=== PATIENT | male | born 1975 | race Hispanic/Latino ===

== ENCOUNTER → 2019-02-20 | Outpatient (CLI) | payer BC, MEDICARE | END | disposition home or self-care (01) | LOC: LAB 12:45 | PROVIDERS: ATTEND Internal Medicine Gastroenterology | DX: R19.7 Diarrhea, unspecified (principal); R14.0 Abdominal distension (gaseous); R10.84 Generalized abdominal pain; R15.1 Fecal smearing | CPT/HCPCS: 87507 ==

== ENCOUNTER 2019-02-26 20:53 | Inpatient (IN) | payer BC, MEDICARE ==
[~2019-02-26] VITALS: Ht 172.7 cm; Wt 87.1 kg
[2019-02-26 22:11] LABS: EOSINOPHILS % (AUTO) 4.9 % (0.0-8.0); HEMATOCRIT 40.3 % (42-54); LYMPHOCYTES % (AUTO) 15.7 % (21.0-51.0); MEAN CORPUSCULAR HEMOGLOBIN 31.7 pg (27.0-33.0); MEAN CORPUSCULAR HGB CONC 32.9 g/dL (32.0-36.0); MEAN CORPUSCULAR VOLUME 96.2 fL (79-99); MONOCYTES % (AUTO) 8.5 % (3.0-13.0); NEUTROPHILS % (AUTO) 69.9 % (40.0-77.0); NUCLEATED RED BLOOD CELLS 0.2 % (0.0-0.19); PLATELET COUNT (AUTO) 225 K/uL (130-400); RED BLOOD CELL COUNT(AUTO) 4.19 MIL/uL (4.50-6.20); WHITE BLOOD COUNT (AUTO) 14.4 K/uL (4.8-10.8)
[2019-02-26 22:43] LABS: ALBUMIN 3.1 g/dL (3.5-5.0); BILIRUBIN,TOTAL 0.4 mg/dL (0.2-1.0); POTASSIUM 5.1 mmol/L (3.5-5.1); TOTAL PROTEIN, SERUM 7.5 g/dL (6.0-8.3)
[2019-02-26] MEDS: METRONIDAZOLE 500MG/100ML BAG 100 ML IV SCH (23:45)
[2019-02-26] MEDS ORDERED: ONDANSETRON HCL 4 MG/2 ML VIAL IV PRN (23:45)
[2019-02-26] MEDS ORDERED: ACETAMINOPHEN 325 MG TAB PO PRN (23:45)
[2019-02-27] VITALS (7 sets, daily range): BP systolic 112–150; BP diastolic 61–79
[2019-02-27] MEDS ORDERED: METRONIDAZOLE 500MG/100ML BAG 100 ML ONE (01:19)
--- NOTE | 2019-02-27 02:00 | NUR ---
ADMISSION N0TE: Admitted to floor per stretcher from ER. AOX3. Fully awake , responsive and ambulatory. Placed in bed according to his comfort. Assesment done. VS checked and recorded. ( see CPOE flow sheet for full assessment). Oriented to room and use of call light. Policies and procedures explained. Verbalized understanding. Home meds entered and reconciled by on-call hospitalist. Plan of care initiated. Observed for any unusual changes in condition. Cared for and needs attended. No apparent distress noted.
[2019-02-27] MEDS: MEPERIDINE HCL/PF 25 MG/0.5 ML AMPUL IVP PRN ×2 (03:27→09:36)
[2019-02-27] MEDS ORDERED: ESCI10TA54 PO (04:20)
[2019-02-27] MEDS ORDERED: METR-172 PO (04:20)
[2019-02-27] MEDS ORDERED: FOLI1TAB85 PO (04:21)
[2019-02-27] MEDS ORDERED: AMYL1CAP63 PO (04:21)
[2019-02-27] MEDS ORDERED: FISH1CAP27 PO (04:21)
[2019-02-27] MEDS ORDERED: TRAM50TA4 PO (04:21)
[2019-02-27] MEDS ORDERED: METO50TA18 PO (04:21)
[2019-02-27] MEDS ORDERED: ZOLP10TA6 PO (04:21)
[2019-02-27] MEDS ORDERED: INSU100I29 SQ (04:21)
[2019-02-27] MEDS ORDERED: PANT40TA25 PO (04:21)
[2019-02-27] MEDS ORDERED: GABA600T10 PO (04:21)
[2019-02-27] MEDS ORDERED: INSU3INS3 SQ (04:21)
[2019-02-27] MEDS ORDERED: AMLO10TA7 PO (04:21)
[2019-02-27] MEDS ORDERED: LOSA100T58 PO (04:21)
[2019-02-27] MEDS ORDERED: HYDR-3420 PO (04:21)
[2019-02-27] MEDS ORDERED: SUCR500T PO (04:21)
[2019-02-27 05:27] LABS: BASOPHILS % (AUTO) 1.3 % (0.0-5.0); EOSINOPHILS % (AUTO) 5.5 % (0.0-8.0); HEMATOCRIT 39.5 % (42-54); LYMPHOCYTES % (AUTO) 13.1 % (21.0-51.0); MEAN CORPUSCULAR HEMOGLOBIN 31.4 pg (27.0-33.0); MEAN CORPUSCULAR HGB CONC 32.3 g/dL (32.0-36.0); MEAN CORPUSCULAR VOLUME 97.2 fL (79-99); MONOCYTES % (AUTO) 6.7 % (3.0-13.0); NEUTROPHILS % (AUTO) 73.4 % (40.0-77.0); PLATELET COUNT (AUTO) 211 K/uL (130-400); RED BLOOD CELL COUNT(AUTO) 4.06 MIL/uL (4.50-6.20); RED CELL DISTRIBUTION WIDTH 17.8 % (11.0-15.5); WHITE BLOOD COUNT (AUTO) 15.4 K/uL (4.8-10.8)
[2019-02-27 05:42] LABS: POTASSIUM 4.9 mmol/L (3.5-5.1)
[2019-02-27 06:04] LABS: CREATININE 17.8 mg/dL (0.5-1.5)
[2019-02-27] MEDS: INSULIN HUMULIN R 100 UNIT/ML 3ML SQ SCH ×4 (06:48→21:35)
[2019-02-27] MEDS: LIPASE/PROTEASE/AMYLASE 5000/17000/24000 PO SCH ×3 (07:30→17:51)
[2019-02-27] MEDS: VELPHORO 500 MG PO SCH ×3 (07:30→17:00)
[2019-02-27] MEDS: METOPROLOL TARTRATE 50 MG TAB PO SCH ×2 (09:30→21:39)
[2019-02-27] MEDS: HYDRALAZINE HCL 10 MG TABLET PO SCH ×3 (09:31→21:40)
[2019-02-27] MEDS: FISH OIL 1000 MG/CAP PO SCH ×2 (09:31→21:39)
[2019-02-27] MEDS: CITALOPRAM 20 MG TABLET PO SCH (09:32)
[2019-02-27] MEDS: LOSARTAN 100 MG TABLET PO SCH (09:32)
[2019-02-27] MEDS: AMLODIPINE BESYLATE 5 MG TAB PO SCH (09:32)
[2019-02-27] MEDS: FAMOTIDINE/PF 20 MG/2 ML VIAL IV SCH ×2 (09:32→21:38)
[2019-02-27] MEDS: FOLIC ACID/VITAMIN B COMP W-C 1 MG CAP/TAB PO SCH (09:32)
[2019-02-27] MEDS: METRONIDAZOLE 500MG/100ML BAG 100 ML IV SCH ×3 (09:33→23:29)
--- NOTE | 2019-02-27 11:12 | NUR ---
JEREMY Youssef met with pt who lives with Frannie in [place], works at [employer], is independent of all ADLS, no DME or HH. speaks limited Eng, so mother Lara Chapin is ER contact [phone]. Plan is home at ok Addendum: 02/27/19 at 1114 by EDMUND TIERNEY Amended: Links added.
--- NOTE | 2019-02-27 11:31 | NUR ---
RD Notification Primary Diagnosis: Chronic Diarrhea. Pt currently on clear liquid diet with PO intake at 0%. Pt has a past medical history of chronic diarrhea, chronic pancreatitis, ESRD on hemodialysis, DM, HTN. Skin is intact. LBM: 02/27, diarrhea unresolved. BMI is 31.1; classified as obese. Meds: Humulin R, Zofran, Pepcid, Apresoline, Lopressor. Labs: WBC 15.4, CRE 17.8, HGB 12.8, HCT 39.5, CRE Kinase 1842, Alb 3.1, Amylase 21, Lipase 28, Na 131, TSH 6.4, Positive for Occult Blood. Pt came in with having diarrhea for 2.5 months. He was prescribed antibiotics and took them for 10 days to resolve diarrhea as per pt, however diarrhea has not resolved. As of now, currently pending GI consult. RD Recommended to continue current diet and advance as tolerated when medically feasible. Nurse gave the okay to send him Gatorade and a protein supplement (Promod 30mL TID). In addition, RD recommends giving the pt Pro and Prebiotics. RD will continue to monitor. Please notify RD if any nutritional concerns arise, thank you. Addendum: 02/27/19 at [address] Amended: Links added.
--- NOTE | 2019-02-27 13:59 | NUR ---
PT DIALYZING AT THIS TIME, NURSING WILL CONTINUE TO MONITOR.
[2019-02-27] MEDS ORDERED: ACETAMINOPHEN EXTENDED RELEASE 650 MG TABLET PO PRN (15:30)
[2019-02-27] MEDS: GABAPENTIN 300 MG CAPSULE PO SCH (21:47)
[2019-02-27] MEDS: ZOLPIDEM TARTRATE 5 MG TAB PO SCH (21:47)
[2019-02-27 23:56] LABS: APPEARANCE,URINE Turbid (CLEAR); BILIRUBIN,URINE Negative (NEGATIVE); COLOR,URINE Dark Yellow (YELLOW); GLUCOSE, URINE (UA) 250 mg/dL (NEGATIVE); KETONES,URINE Trace mg/dL (NEGATIVE); LEUKOCYTE ESTERASE ,URINE Large (NEGATIVE); NITRATE,URINE Negative (NEGATIVE); OCCULT BLOOD,URINE Large (NEGATIVE); PROTEIN,URINE >=1000 mg/dL (NEGATIVE)
[2019-02-28 00:05] LABS: BACTERIA,URINE Rare /HPF (None Seen); WBC,URINE 26-50 /HPF (0-1)
[2019-02-28 00:06] LABS: COARSE GRANULAR CASTS,URINE 0-2 /LPF (None Seen); MUCUS,URINE Rare LPF (None Seen); SQUAMOUS EPITHELIAL CELL,UR Moderate /HPF (0-2)
[2019-02-28 03:15] VITALS: BP 157/78
[2019-02-28 04:58] LABS: HEMATOCRIT 38.6 % (42-54); MEAN CORPUSCULAR HGB CONC 33.2 g/dL (32.0-36.0); MEAN CORPUSCULAR VOLUME 93.3 fL (79-99); NUCLEATED RED BLOOD CELLS 0.1 % (0.0-0.19); PLATELET COUNT (AUTO) 191 K/uL (130-400); RED BLOOD CELL COUNT(AUTO) 4.14 MIL/uL (4.50-6.20); RED CELL DISTRIBUTION WIDTH 16.9 % (11.0-15.5); WHITE BLOOD COUNT (AUTO) 11.7 K/uL (4.8-10.8)
[2019-02-28 05:06] LABS: MAGNESIUM 2.2 mg/dL (1.80-2.40); PHOSPHORUS 7.8 mg/dL (2.5-4.9)
[2019-02-28 05:08] LABS: CREATININE 12.4 mg/dL (0.5-1.5); POTASSIUM 2.9 mmol/L (3.5-5.1)
[2019-02-28 05:12] LABS: BAND NEUTROPHILS % (MANUAL) 6 % (0-2); EOSINOPHILS % (MANUAL) 8 % (1-6); LYMPHOCYTES % (MANUAL) 16 % (22-44); MONOCYTES % (MANUAL) 9 % (2-9); REACTIVE LYMPHOCYTES 2 % (0-0); SEGMENTED NEUTROPHILS % 59 % (40-70)
[2019-02-28 05:13] LABS: MAN.DIFF COMMENT-IMPRESSION MANUAL DIFFERENTIAL
[2019-02-28] MEDS ORDERED: LIDOCAINE HCL-MPF 1% 2ML VIAL IVP PRN (05:15)
[2019-02-28] MEDS ORDERED: POTASSIUM CHLORIDE 10MEQ/100ML 100 ML IV PRN ×2 (05:15→08:45)
[2019-02-28] MEDS: INSULIN HUMULIN R 100 UNIT/ML 3ML SQ SCH ×4 (07:30→20:49)
[2019-02-28] MEDS: LIPASE/PROTEASE/AMYLASE 5000/17000/24000 PO SCH ×3 (07:30→17:01)
[2019-02-28] MEDS: VELPHORO 500 MG PO SCH ×3 (07:30→16:11)
[2019-02-28 08:00] VITALS: BP 139/79
[2019-02-28] MEDS: METRONIDAZOLE 500MG/100ML BAG 100 ML IV SCH ×3 (08:21→23:28)
[2019-02-28] MEDS: FAMOTIDINE/PF 20 MG/2 ML VIAL IV SCH (08:23)
[2019-02-28] MEDS ORDERED: POTASSIUM CHLORIDE 10% ELIXIR 20 MEQ/15 ML UDCUP PO PRN (08:45)
[2019-02-28] MEDS: HYDRALAZINE HCL 10 MG TABLET PO SCH ×3 (08:57→22:56)
[2019-02-28] MEDS: CITALOPRAM 20 MG TABLET PO SCH (08:57)
[2019-02-28] MEDS: FOLIC ACID/VITAMIN B COMP W-C 1 MG CAP/TAB PO SCH (08:57)
[2019-02-28] MEDS: AMLODIPINE BESYLATE 5 MG TAB PO SCH (08:57)
[2019-02-28] MEDS: FISH OIL 1000 MG/CAP PO SCH ×2 (08:57→22:56)
[2019-02-28] MEDS: LOSARTAN 100 MG TABLET PO SCH (08:57)
[2019-02-28] MEDS: METOPROLOL TARTRATE 50 MG TAB PO SCH ×2 (08:58→22:55)
[2019-02-28] MEDS ORDERED: DIPHENOXYLATE HCL/ATROPINE 2.5/0.025 MG TAB PO SCH ×2 (09:00→17:45)
[2019-02-28] MEDS ORDERED: IOHEXOL-350 75 ML VIAL IV ONE (09:31)
[2019-02-28] MEDS ORDERED: DIATR MEGLU/DIATRIZOATE SODIUM 30 ML BOTTLE ONE (09:31)
[2019-02-28] MEDS: POTASSIUM CHLORIDE 20 MEQ ERTAB PO PRN ×2 (11:17→15:55)
[2019-02-28 11:58] VITALS: BP 140/70
[2019-02-28] MEDS ORDERED: IOHEXOL 350 MG/ML 100ML INFUS..BTL IV ONE ×2 (13:47→14:43)
--- NOTE | 2019-02-28 15:25 | NUR ---
PT UPDATE PT BACK FROM CT A/P WITH CONTRAST WITH SWOLLEN RIGHT HAND, +2 PITTING EDEMA AT IV SITE TO FOREARM, NURSING MADE AWARE, NURSING WILL CONTINUE TO MONITOR.
[2019-02-28 16:00] VITALS: BP_SYST 127; BP_SYST 140; BP_DIAS 70; BP_DIAS 74
[2019-02-28 19:25] VITALS: BP 145/80
--- NOTE | 2019-02-28 22:00 | NUR ---
right hand status piv to right hand removed ,cath completely out,with good hemostasis, marked swelling post contrast media infusion this p.m. ct scan warm compress applied Addendum: 03/01/19 at 0106 by MELVIN ALONZO RN RN Amended: Links added.
[2019-02-28] MEDS: GABAPENTIN 300 MG CAPSULE PO SCH (22:55)
[2019-02-28] MEDS: ZOLPIDEM TARTRATE 5 MG TAB PO SCH (22:56)
[2019-02-28 23:20] VITALS: BP 165/87
[2019-03-01] VITALS (17 sets, daily range): BP systolic 65–157; BP diastolic 37–86
[2019-03-01] MEDS: INSULIN HUMULIN R 100 UNIT/ML 3ML SQ SCH ×4 (06:47→20:50)
[2019-03-01 07:26] LABS: POTASSIUM 3.2 mmol/L (3.5-5.1)
[2019-03-01] MEDS: VELPHORO 500 MG PO SCH ×3 (07:30→17:00)
[2019-03-01] MEDS: LIPASE/PROTEASE/AMYLASE 5000/17000/24000 PO SCH ×3 (07:30→18:10)
[2019-03-01 07:32] LABS: CREATININE 9.9 mg/dL (0.5-1.5)
[2019-03-01] MEDS: FAMOTIDINE/PF 20 MG/2 ML VIAL IV SCH (07:48)
[2019-03-01] MEDS: METRONIDAZOLE 500MG/100ML BAG 100 ML IV SCH ×3 (07:48→23:16)
--- NOTE | 2019-03-01 08:05 | NUR ---
Pt EUS Procedure Status Pt taken down for EUS procedure at this time by Dr. Breen, Nursing will continue to monitor.
[2019-03-01] MEDS ORDERED: PROPOFOL 1000 MG/100 ML 100 ML IV ONE (08:32)
[2019-03-01] MEDS ORDERED: LIDOCAINE HCL 1% 20 ML VIAL ONE (08:39)
[2019-03-01] MEDS: FISH OIL 1000 MG/CAP PO SCH ×2 (10:21→20:51)
[2019-03-01] MEDS: CITALOPRAM 20 MG TABLET PO SCH (10:22)
[2019-03-01] MEDS: LOSARTAN 100 MG TABLET PO SCH (10:22)
[2019-03-01] MEDS: METOPROLOL TARTRATE 50 MG TAB PO SCH ×2 (10:22→20:52)
[2019-03-01] MEDS: AMLODIPINE BESYLATE 5 MG TAB PO SCH (10:22)
[2019-03-01] MEDS: HYDRALAZINE HCL 10 MG TABLET PO SCH ×3 (10:22→20:52)
[2019-03-01] MEDS: FOLIC ACID/VITAMIN B COMP W-C 1 MG CAP/TAB PO SCH (10:22)
[2019-03-01] MEDS ORDERED: DIPHENOXYLATE HCL/ATROPINE 2.5/0.025 MG TAB PO PRN (10:45)
--- NOTE | 2019-03-01 13:16 | NUR ---
RD Follow up Pt remains with Diarrhea. RD provided Low FODMAP nutrition and diet education. Pt with request for Ensure with meals. Pt with Full Liquid diet in place. Pt monitored labs: Na 133, K 3.2, Cl 98, BUN 25, Cr 9.9, GFR 6, Glu 121, Ca 7.4, P 7.8, Alb 3.1. RD to continue to monitor. Please notify as additional nutrition concerns arise. Thank you. Addendum: 03/01/19 at [address] RD Amended: Links added.
--- NOTE | 2019-03-01 13:26 | NUR ---
Diet Education RD provided Low FODMAP Nutrition and Diet education. RD reviewed reference materials and handouts with Pt. Pt with multiple questions. RD answered all Pt questions. Pt verbalized understanding. RD encouraged Pt to notify as questions and concerns arise. RD to follow up. Thank you. Addendum: 03/01/19 at [address] RD Amended: Links added.
[2019-03-01] MEDS: CHOLESTYRAMINE PACKET 4 GM PACKET PO SCH (20:51)
[2019-03-01] MEDS: ZOLPIDEM TARTRATE 5 MG TAB PO SCH (20:52)
[2019-03-01] MEDS: GABAPENTIN 300 MG CAPSULE PO SCH (20:52)
[2019-03-02 03:00] VITALS: BP 139/71
[2019-03-02] MEDS: INSULIN HUMULIN R 100 UNIT/ML 3ML SQ SCH ×4 (06:13→20:46)
[2019-03-02] MEDS: VELPHORO 500 MG PO SCH ×3 (06:31→17:00)
[2019-03-02 06:33] LABS: BASOPHILS % (AUTO) 3.1 % (0.0-5.0); EOSINOPHILS % (AUTO) 8.4 % (0.0-8.0); LYMPHOCYTES % (AUTO) 23.2 % (21.0-51.0); MEAN CORPUSCULAR HEMOGLOBIN 31.4 pg (27.0-33.0); MEAN CORPUSCULAR HGB CONC 33.7 g/dL (32.0-36.0); MONOCYTES % (AUTO) 11.5 % (3.0-13.0); NEUTROPHILS % (AUTO) 53.8 % (40.0-77.0); PLATELET COUNT (AUTO) 211 K/uL (130-400); RED BLOOD CELL COUNT(AUTO) 4.52 MIL/uL (4.50-6.20); RED CELL DISTRIBUTION WIDTH 16.4 % (11.0-15.5); WHITE BLOOD COUNT (AUTO) 10.8 K/uL (4.8-10.8)
[2019-03-02 06:47] LABS: ALBUMIN 3.1 g/dL (3.5-5.0); BILIRUBIN,TOTAL 0.5 mg/dL (0.2-1.0); POTASSIUM 3.7 mmol/L (3.5-5.1); TOTAL PROTEIN, SERUM 7.9 g/dL (6.0-8.3)
[2019-03-02 06:59] LABS: CREATININE 12.4 mg/dL (0.5-1.5)
[2019-03-02 08:00] VITALS: BP 181/73
[2019-03-02] MEDS: AMLODIPINE BESYLATE 5 MG TAB PO SCH (09:00)
--- NOTE | 2019-03-02 10:00 | NUR ---
cm note met with patient and states goes to [facility] in [place] with dr Cervantes TTS schedule. states he is still working and pt drives. instructed on importance of not missing dialysis treatments to avoid health issues. pt states he will attend as directed.
[2019-03-02] MEDS: METRONIDAZOLE 500MG/100ML BAG 100 ML IV SCH ×3 (11:19→23:03)
[2019-03-02] MEDS: FAMOTIDINE/PF 20 MG/2 ML VIAL IV SCH (11:19)
[2019-03-02] MEDS: FISH OIL 1000 MG/CAP PO SCH ×2 (11:19→20:46)
[2019-03-02] MEDS: FOLIC ACID/VITAMIN B COMP W-C 1 MG CAP/TAB PO SCH (11:19)
[2019-03-02] MEDS: CHOLESTYRAMINE PACKET 4 GM PACKET PO SCH ×2 (11:19→20:46)
[2019-03-02] MEDS: LIPASE/PROTEASE/AMYLASE 5000/17000/24000 PO SCH ×3 (11:20→17:53)
[2019-03-02] MEDS: LOSARTAN 100 MG TABLET PO SCH (11:20)
[2019-03-02] MEDS: HYDRALAZINE HCL 10 MG TABLET PO SCH ×3 (11:21→20:46)
[2019-03-02] MEDS: CITALOPRAM 20 MG TABLET PO SCH (11:22)
[2019-03-02] MEDS: METOPROLOL TARTRATE 50 MG TAB PO SCH ×2 (11:22→20:45)
[2019-03-02] MEDS ORDERED: RENAL DOSE IV SCH (11:45)
[2019-03-02 12:00] VITALS: BP 150/73
[2019-03-02 16:00] VITALS: BP 135/73
[2019-03-02] MEDS ORDERED: PEG 3350/NA SULF,BICARB,CL/KCL 4000 ML SOLN PO SCH (17:30)
[2019-03-02] MEDS: LEVOFLOXACIN 250 MG/D5W 50ML 50 ML IV SCH (17:53)
[2019-03-02 19:18] VITALS: BP 145/76
[2019-03-02] MEDS: ZOLPIDEM TARTRATE 5 MG TAB PO SCH (20:45)
[2019-03-02] MEDS: GABAPENTIN 300 MG CAPSULE PO SCH (20:45)
[2019-03-03 00:10] VITALS: BP 140/76
[2019-03-03 04:00] VITALS: BP 131/63
[2019-03-03 04:08] LABS: HEPATITIS A ANTIBODY IGM Negative (Negative); HEPATITIS B CORE IGM Negative (Negative); HEPATITIS Bs ANTIGEN SCREEN P Negative (Negative)
[2019-03-03 04:34] LABS: BASOPHILS % (AUTO) 1.6 % (0.0-5.0); EOSINOPHILS % (AUTO) 5.7 % (0.0-8.0); HEMATOCRIT 39.7 % (42-54); LYMPHOCYTES % (AUTO) 17.2 % (21.0-51.0); MEAN CORPUSCULAR HEMOGLOBIN 31.4 pg (27.0-33.0); MEAN CORPUSCULAR HGB CONC 33.1 g/dL (32.0-36.0); MEAN CORPUSCULAR VOLUME 94.9 fL (79-99); NEUTROPHILS % (AUTO) 65.5 % (40.0-77.0); NUCLEATED RED BLOOD CELLS 0.1 % (0.0-0.19); PLATELET COUNT (AUTO) 212 K/uL (130-400); RED BLOOD CELL COUNT(AUTO) 4.18 MIL/uL (4.50-6.20); RED CELL DISTRIBUTION WIDTH 16.3 % (11.0-15.5); WHITE BLOOD COUNT (AUTO) 10.9 K/uL (4.8-10.8)
[2019-03-03] MEDS: VELPHORO 500 MG PO SCH ×3 (04:41→17:00)
[2019-03-03] MEDS: INSULIN HUMULIN R 100 UNIT/ML 3ML SQ SCH ×4 (04:42→21:02)
[2019-03-03 04:51] LABS: CRP QUANTITATIVE 7.7 mg/L (0.00-9.0); POTASSIUM 3.9 mmol/L (3.5-5.1)
[2019-03-03 05:00] LABS: CREATININE 14.2 mg/dL (0.5-1.5)
[2019-03-03 05:38] LABS: ERYTHROCYTE SEDIMENTATION RATE 15 MM/HR (0-15)
[2019-03-03 08:00] VITALS: BP 140/75
[2019-03-03] MEDS: LIPASE/PROTEASE/AMYLASE 5000/17000/24000 PO SCH ×3 (08:00→17:48)
[2019-03-03] MEDS: LACTOBACILLUS RHAMNOSUS GG 1 EACH CAP.SPRINK PO SCH ×4 (08:45→20:53)
[2019-03-03] MEDS: HYDRALAZINE HCL 10 MG TABLET PO SCH ×3 (09:00→20:52)
[2019-03-03] MEDS: METOPROLOL TARTRATE 50 MG TAB PO SCH ×2 (09:00→20:53)
[2019-03-03] MEDS: CITALOPRAM 20 MG TABLET PO SCH (09:00)
[2019-03-03] MEDS: LOSARTAN 100 MG TABLET PO SCH (09:00)
[2019-03-03] MEDS: AMLODIPINE BESYLATE 5 MG TAB PO SCH (09:00)
[2019-03-03] MEDS: FISH OIL 1000 MG/CAP PO SCH ×2 (09:00→20:52)
[2019-03-03] MEDS: FOLIC ACID/VITAMIN B COMP W-C 1 MG CAP/TAB PO SCH (09:00)
[2019-03-03] MEDS: CHOLESTYRAMINE PACKET 4 GM PACKET PO SCH ×2 (09:00→20:53)
[2019-03-03] MEDS: METRONIDAZOLE 500MG/100ML BAG 100 ML IV SCH ×2 (10:18→15:54)
[2019-03-03] MEDS: FAMOTIDINE/PF 20 MG/2 ML VIAL IV SCH (10:19)
[2019-03-03 12:00] VITALS: BP 155/82
[2019-03-03 16:00] VITALS: BP 161/85
[2019-03-03 19:00] VITALS: BP 172/84
--- NOTE | 2019-03-03 20:00 | NUR ---
ROUNDS / PT AAO X 3 REVIEW PLAN OF CARE. . PT UPDATE OF NPO STATUS AFTER MIDNITE. QUESTION ASK FOR CONCERNS. DENIES ANY PAIN. CALL LIGHT IN REACH.. WATCHING TV . PT HAD ALREADY BEEN BOWEL PREP FOR THE COLOSCOPY PROCEDURE TO BE DONE IN AM. ON A CL LIQ DIET. .
[2019-03-03] MEDS: GABAPENTIN 300 MG CAPSULE PO SCH (20:52)
[2019-03-03] MEDS: ZOLPIDEM TARTRATE 5 MG TAB PO SCH (20:53)
[2019-03-04] VITALS (12 sets, daily range): BP systolic 135–172; BP diastolic 44–98
[2019-03-04] MEDS: METRONIDAZOLE 500MG/100ML BAG 100 ML IV SCH ×4 (01:09→23:45)
[2019-03-04] MEDS ORDERED: DEXTROSE 50%-WATER 50 ML DISP.SYRIN IV PRN (02:30)
[2019-03-04] MEDS ORDERED: GLUCAGON 1MG KIT 1 MG ML IM PRN (02:30)
[2019-03-04] MEDS ORDERED: DEXTROSE 50%-WATER 50 ML DISP.SYRIN IV ONE (02:30)
--- NOTE | 2019-03-04 03:50 | NUR ---
BLOOD SUGAR OF 48, PT NPO . AND WAS GIVEN DEXTROSE 50% 25 ML FOR COVERAGE AND A RECHECK AFTER GIVEN P TO A 125
[2019-03-04 05:53] LABS: BASOPHILS % (AUTO) 3.2 % (0.0-5.0); EOSINOPHILS % (AUTO) 6.1 % (0.0-8.0); HEMATOCRIT 39.9 % (42-54); LYMPHOCYTES % (AUTO) 16.7 % (21.0-51.0); MEAN CORPUSCULAR HEMOGLOBIN 31.6 pg (27.0-33.0); MEAN CORPUSCULAR VOLUME 92.7 fL (79-99); MONOCYTES % (AUTO) 8.8 % (3.0-13.0); NEUTROPHILS % (AUTO) 65.2 % (40.0-77.0); PLATELET COUNT (AUTO) 211 K/uL (130-400); RED BLOOD CELL COUNT(AUTO) 4.31 MIL/uL (4.50-6.20); RED CELL DISTRIBUTION WIDTH 16.5 % (11.0-15.5); WHITE BLOOD COUNT (AUTO) 10.2 K/uL (4.8-10.8)
[2019-03-04 06:00] LABS: POTASSIUM 3.7 mmol/L (3.5-5.1)
[2019-03-04 06:02] LABS: CREATININE 13.3 mg/dL (0.5-1.5)
[2019-03-04] MEDS: INSULIN HUMULIN R 100 UNIT/ML 3ML SQ SCH ×4 (06:37→21:19)
[2019-03-04] MEDS: VELPHORO 500 MG PO SCH ×3 (07:30→17:00)
[2019-03-04] MEDS: LIPASE/PROTEASE/AMYLASE 5000/17000/24000 PO SCH ×3 (08:00→17:00)
[2019-03-04] MEDS: HYDRALAZINE HCL 10 MG TABLET PO SCH ×3 (08:03→20:51)
[2019-03-04] MEDS: CHOLESTYRAMINE PACKET 4 GM PACKET PO SCH ×2 (08:03→21:21)
[2019-03-04] MEDS: CITALOPRAM 20 MG TABLET PO SCH (08:03)
[2019-03-04] MEDS: LACTOBACILLUS RHAMNOSUS GG 1 EACH CAP.SPRINK PO SCH ×4 (08:03→20:51)
[2019-03-04] MEDS: FISH OIL 1000 MG/CAP PO SCH ×2 (08:04→20:51)
[2019-03-04] MEDS: AMLODIPINE BESYLATE 5 MG TAB PO SCH (09:00)
[2019-03-04] MEDS: METOPROLOL TARTRATE 50 MG TAB PO SCH ×2 (09:00→20:51)
[2019-03-04] MEDS: FAMOTIDINE/PF 20 MG/2 ML VIAL IV SCH (09:10)
[2019-03-04] MEDS ORDERED: PROPOFOL 10 MG/ML 20ML VIAL IV ONE (11:59)
--- NOTE | 2019-03-04 12:55 | NUR ---
S/P ABORTED COLONOSCOPY PATIENT HAD LARGE BOWEL MOVEMENT , POST -OP VS, CLEAR LIQUIDS GOLYTELY PREP NPO AT MN AND COLONOSCOPY IN AM. B/P 159/58 P62 T 98.1 98% ON ROOM AIR BS 121. WILL CONTINUE TO MONITOR
[2019-03-04] MEDS: LEVOFLOXACIN 250 MG/D5W 50ML 50 ML IV SCH (14:44)
[2019-03-04] MEDS: FOLIC ACID/VITAMIN B COMP W-C 1 MG CAP/TAB PO SCH (15:21)
[2019-03-04] MEDS: LOSARTAN 100 MG TABLET PO SCH (15:22)
[2019-03-04] MEDS ORDERED: PEG 3350/NA SULF,BICARB,CL/KCL 4000 ML SOLN PO ONE (16:20)
[2019-03-04] MEDS: GABAPENTIN 300 MG CAPSULE PO SCH (20:51)
[2019-03-04] MEDS: ZOLPIDEM TARTRATE 5 MG TAB PO SCH (21:18)
[2019-03-05] VITALS (15 sets, daily range): BP systolic 109–191; BP diastolic 39–103
[2019-03-05 04:35] LABS: BASOPHILS % (AUTO) 1.2 % (0.0-5.0); EOSINOPHILS % (AUTO) 3.3 % (0.0-8.0); HEMATOCRIT 39.8 % (42-54); LYMPHOCYTES % (AUTO) 5.4 % (21.0-51.0); MEAN CORPUSCULAR HEMOGLOBIN 31.3 pg (27.0-33.0); MEAN CORPUSCULAR HGB CONC 33.2 g/dL (32.0-36.0); MEAN CORPUSCULAR VOLUME 94.2 fL (79-99); NEUTROPHILS % (AUTO) 83.1 % (40.0-77.0); NUCLEATED RED BLOOD CELLS 0.1 % (0.0-0.19); PLATELET COUNT (AUTO) 203 K/uL (130-400); RED BLOOD CELL COUNT(AUTO) 4.23 MIL/uL (4.50-6.20); RED CELL DISTRIBUTION WIDTH 16.2 % (11.0-15.5); WHITE BLOOD COUNT (AUTO) 17.3 K/uL (4.8-10.8)
[2019-03-05 04:46] LABS: POTASSIUM 3.5 mmol/L (3.5-5.1)
[2019-03-05 04:52] LABS: CREATININE 14.8 mg/dL (0.5-1.5)
[2019-03-05] MEDS: INSULIN HUMULIN R 100 UNIT/ML 3ML SQ SCH ×4 (06:28→20:41)
[2019-03-05] MEDS ORDERED: LIDOCAINE HCL 1% 20 ML VIAL ONE (06:51)
[2019-03-05] MEDS ORDERED: PROPOFOL 10 MG/ML 20ML VIAL IV ONE (06:51)
[2019-03-05] MEDS ORDERED: GLYCOPYRROLATE 0.2 MG/ML 5 ML VIAL ONE (06:51)
[2019-03-05] MEDS: VELPHORO 500 MG PO SCH ×3 (07:30→17:00)
[2019-03-05] MEDS: LACTOBACILLUS RHAMNOSUS GG 1 EACH CAP.SPRINK PO SCH ×4 (08:45→20:43)
[2019-03-05] MEDS: METRONIDAZOLE 500MG/100ML BAG 100 ML IV SCH ×2 (08:56→18:00)
[2019-03-05] MEDS: FAMOTIDINE/PF 20 MG/2 ML VIAL IV SCH (09:22)
[2019-03-05] MEDS: CHOLESTYRAMINE PACKET 4 GM PACKET PO SCH ×2 (09:24→20:43)
[2019-03-05] MEDS: HYDRALAZINE HCL 10 MG TABLET PO SCH ×3 (09:24→20:44)
[2019-03-05] MEDS: CITALOPRAM 20 MG TABLET PO SCH (09:25)
[2019-03-05] MEDS: AMLODIPINE BESYLATE 5 MG TAB PO SCH (09:25)
[2019-03-05] MEDS: METOPROLOL TARTRATE 50 MG TAB PO SCH ×2 (09:26→20:44)
[2019-03-05] MEDS: LOSARTAN 100 MG TABLET PO SCH (09:26)
[2019-03-05] MEDS: FOLIC ACID/VITAMIN B COMP W-C 1 MG CAP/TAB PO SCH (09:26)
[2019-03-05] MEDS: LIPASE/PROTEASE/AMYLASE 5000/17000/24000 PO SCH ×3 (09:34→17:59)
--- NOTE | 2019-03-05 15:41 | NUR ---
DIALYSIS PERFORMED TODAY STARTED 1240 OFF 1541 0.7 LITER REMOVED OVER 3 HOURS B/P 172/90 P 62 RR 18 TEMP 98.4
--- NOTE | 2019-03-05 16:14 | NUR ---
RD Follow up note Pt remains with chronic persistent diarrhea; Anti-diarrheal agents in place. Pt with Altered renal labs (BUN 37/Cr 14.8/GFR 4); Dialysis in place, Recommend to modify to Dialysis diet. Pt with good PO (100%) as per Pt. Pt monitored labs: CO2 16, BUN 37, Cr 14.8, GFR 4, Glu 148, Ca 7.5, Lipase 15, Alk 155, AST 40, Alb 3.1. RD to continue to monitor. Pending colonoscopy. Please ntoify RD as additional nutrition concerns arise. Thank you. Addendum: 03/05/19 at [address] Amended: Links added.
[2019-03-05] MEDS: FISH OIL 1000 MG/CAP PO SCH (20:44)
[2019-03-05] MEDS: GABAPENTIN 300 MG CAPSULE PO SCH (20:44)
[2019-03-05] MEDS: ZOLPIDEM TARTRATE 5 MG TAB PO SCH (20:45)
[2019-03-06 00:48] VITALS: BP 169/95
[2019-03-06] MEDS: METRONIDAZOLE 500MG/100ML BAG 100 ML IV SCH ×2 (00:49→07:45)
[2019-03-06 04:21] VITALS: BP 154/96
[2019-03-06 04:32] LABS: HEMATOCRIT 37.8 % (42-54); MEAN CORPUSCULAR HEMOGLOBIN 31.2 pg (27.0-33.0); MEAN CORPUSCULAR HGB CONC 33.5 g/dL (32.0-36.0); PLATELET COUNT (AUTO) 211 K/uL (130-400); RED BLOOD CELL COUNT(AUTO) 4.06 MIL/uL (4.50-6.20); RED CELL DISTRIBUTION WIDTH 16.1 % (11.0-15.5); WHITE BLOOD COUNT (AUTO) 10.5 K/uL (4.8-10.8)
[2019-03-06 04:42] LABS: POTASSIUM 3.9 mmol/L (3.5-5.1)
[2019-03-06] MEDS: VELPHORO 500 MG PO SCH ×2 (06:30→11:30)
[2019-03-06] MEDS: INSULIN HUMULIN R 100 UNIT/ML 3ML SQ SCH ×2 (06:31→11:45)
[2019-03-06 08:00] VITALS: BP 159/93
[2019-03-06] MEDS: LACTOBACILLUS RHAMNOSUS GG 1 EACH CAP.SPRINK PO SCH ×2 (08:55→09:07)
[2019-03-06] MEDS: HYDRALAZINE HCL 10 MG TABLET PO SCH (08:56)
[2019-03-06] MEDS: FOLIC ACID/VITAMIN B COMP W-C 1 MG CAP/TAB PO SCH (08:56)
[2019-03-06] MEDS: LIPASE/PROTEASE/AMYLASE 5000/17000/24000 PO SCH ×2 (08:56→12:13)
[2019-03-06] MEDS: FISH OIL 1000 MG/CAP PO SCH (08:57)
[2019-03-06] MEDS: CITALOPRAM 20 MG TABLET PO SCH (08:57)
[2019-03-06] MEDS: CHOLESTYRAMINE PACKET 4 GM PACKET PO SCH (08:57)
[2019-03-06] MEDS: METOPROLOL TARTRATE 50 MG TAB PO SCH (08:57)
[2019-03-06] MEDS: LOSARTAN 100 MG TABLET PO SCH (08:57)
[2019-03-06] MEDS: AMLODIPINE BESYLATE 5 MG TAB PO SCH (08:57)
[2019-03-06] MEDS: FAMOTIDINE/PF 20 MG/2 ML VIAL IV SCH (09:00)
--- NOTE | 2019-03-06 09:08 | NUR ---
NO IV ACCESS, UNABLE TO GIVE PEPCID AND FLAGYL AT THIS TIME. THINKS HE IS GOING HOME TODAY SO DOES NOT WANT TO BE STUCK AGAIN SO REQUESTING TO WAIT UNTIL SEEN BY .
[2019-03-06] MEDS ORDERED: METR-152 PO (10:55)
[2019-03-06] MEDS ORDERED: LEVO250T59 PO (10:55)
[2019-03-06] MEDS ORDERED: LACT1CAP79 PO (10:55)
[2019-03-06] MEDS: LEVOFLOXACIN 250 MG/D5W 50ML 50 ML IV SCH (12:00)
--- NOTE | 2019-03-06 12:20 | NUR ---
DISCHARGED NOW USING TEACH BACK, VERBALIZES UNDERSTANDING OF ALL INST. GIVEN. RX. GIVEN FOR FLAGYL, LACTOBACILLUS AND LEVOFLOXIN. ALSO FOLLOW UP APPTS. MADE . WILL RESUME HOME MEDS. BEFORE AND KEEP SAME DIALYSIS SCHEDULE.
== END 2019-03-06 12:32 | disposition home or self-care (01) | DRG 393 ==
LOC: EDH 20:53 → OBSVTOIN 23:31 → EDHIP 23:31 → 3AH 02-27 02:05
PROVIDERS: ADMIT Internal Medicine; ATTEND Internal Medicine
PROC: 5A1D70Z Performance of Urinary Filtration, Intermittent, Less than 6 Hours Per Day (ICD-10-PCS; 2019-02-27)
PROC: 5A1D70Z Performance of Urinary Filtration, Intermittent, Less than 6 Hours Per Day (ICD-10-PCS; 2019-02-28)
PROC: 0DJ08ZZ Inspection of Upper Intestinal Tract, Via Natural or Artificial Opening Endoscopic (ICD-10-PCS; 2019-03-01)
PROC: 5A1D70Z Performance of Urinary Filtration, Intermittent, Less than 6 Hours Per Day (ICD-10-PCS; 2019-03-03)
PROC: 5A1D70Z Performance of Urinary Filtration, Intermittent, Less than 6 Hours Per Day (ICD-10-PCS; principal; 2019-03-05)
PROC: 0DBP8ZX Excision of Rectum, Via Natural or Artificial Opening Endoscopic, Diagnostic (ICD-10-PCS; 2019-03-05)
PROC: 0DBL8ZZ Excision of Transverse Colon, Via Natural or Artificial Opening Endoscopic (ICD-10-PCS; 2019-03-05)
PROC: 0DBN8ZZ Excision of Sigmoid Colon, Via Natural or Artificial Opening Endoscopic (ICD-10-PCS; 2019-03-05)
PROC: 0DBL8ZX Excision of Transverse Colon, Via Natural or Artificial Opening Endoscopic, Diagnostic (ICD-10-PCS; 2019-03-05)
DX: K63.5 Polyp of colon (principal); N18.6 End stage renal disease; M62.82 Rhabdomyolysis; I12.0 Hypertensive chronic kidney disease with stage 5 chronic kidney disease or end stage renal disease; K86.1 Other chronic pancreatitis; K52.9 Noninfective gastroenteritis and colitis, unspecified; Z99.2 Dependence on renal dialysis; E11.22 Type 2 diabetes mellitus with diabetic chronic kidney disease; D64.9 Anemia, unspecified; E78.1 Pure hyperglyceridemia; E78.5 Hyperlipidemia, unspecified; E87.6 Hypokalemia; K31.89 Other diseases of stomach and duodenum; D12.3 Benign neoplasm of transverse colon; D12.5 Benign neoplasm of sigmoid colon; Z88.5 Allergy status to narcotic agent; Z90.49 Acquired absence of other specified parts of digestive tract; Z90.81 Acquired absence of spleen; Z91.15 Patient's noncompliance with renal dialysis; Z88.8 Allergy status to other drugs, medicaments and biological substances
CPT/HCPCS: 36415; 43259; 45380; 45385; 74176; 74178; 80048; 80053; 80074; 81001; 82150; 82270; 82550; 82948; 83630; 83690; 83735; 84100; 84443; 84484; 84586; 85025; 85027; 85651; 86140; 87046; 87177; 87324; 88305; 90935; 93005; G0378; J1610; J1815; J1956; J2175; J2704; J3490; J7070; Q9963; Q9967

== ENCOUNTER 2019-10-26 15:00 | Inpatient (IN) | payer BC, MEDICARE ==
[~2019-10-26] VITALS: Ht 172.7 cm; Wt 88.5 kg
[~2019-10-26 15:00] MED LIST: AMLO-258 PO; AMYL1CAP63 PO; ESCI10TA54 PO; FISH1CAP27 PO; FOLI1TAB85 PO; GABA600T10 PO; HYDR-3420 PO; INSU100I29 SQ; INSU3INS3 SQ; LACT1CAP79 PO; LEVO250T59 PO; LOSA100T58 PO; METO50TA18 PO; METR-152 PO; METR-172 PO; PANT40TA54 PO; SUCR500T PO; TRAM50TA4 PO; ZOLP10TA6 PO
[2019-10-26 15:36] LABS: BASOPHILS % (AUTO) 0.9 % (0.0-5.0); EOSINOPHILS % (AUTO) 7.2 % (0.0-8.0); HEMATOCRIT 29.3 % (42-54); LYMPHOCYTES % (AUTO) 10.8 % (21.0-51.0); MEAN CORPUSCULAR HEMOGLOBIN 29.8 pg (27.0-33.0); MEAN CORPUSCULAR HGB CONC 32.1 g/dL (32.0-36.0); MONOCYTES % (AUTO) 6.9 % (3.0-13.0); NEUTROPHILS % (AUTO) 73.8 % (40.0-77.0); PLATELET COUNT (AUTO) 217 K/uL (130-400); RED BLOOD CELL COUNT(AUTO) 3.15 MIL/uL (4.50-6.20); RED CELL DISTRIBUTION WIDTH 13.8 % (11.0-15.5); WHITE BLOOD COUNT (AUTO) 13.2 K/uL (4.8-10.8)
[2019-10-26 15:47] LABS: INR 0.93 (0.85-1.15); PARTIAL THROMBOPLASTIN TIME 26.8 SEC (26.3-35.5); PROTHROMBIN TIME 10.1 SEC (9.6-11.6)
[2019-10-26 16:03] LABS: ALBUMIN 3.2 g/dL (3.5-5.0); BILIRUBIN,TOTAL 0.4 mg/dL (0.2-1.0); POTASSIUM 5.2 mmol/L (3.5-5.1); TOTAL PROTEIN, SERUM 7.6 g/dL (6.0-8.3)
[2019-10-26 16:05] LABS: CREATININE 9.4 mg/dL (0.5-1.5)
[2019-10-26 16:09] LABS: B-TYPE NATRIURETIC PEPTIDE 1400 pg/mL (0-100)
[2019-10-26] MEDS ORDERED: FUROSEMIDE 10 MG/ML 4ML VIAL ONE (16:36)
[2019-10-26 17:05] LABS: ABG BASE EXCESS -4.7 mmol/L (-2.0-3.0); ABG HCO3 19.4 mmol/L (21.0-28.0); ABG OXYGEN SATURATION 98.2 % (95.0-99.0); ABG PCO2 34 mmHg (35-48)
[2019-10-26] MEDS ORDERED: ONDANSETRON HCL 4 MG/2 ML VIAL IV PRN (19:15)
[2019-10-26] MEDS ORDERED: ACETAMINOPHEN 325 MG TAB PO PRN ×2 (19:15)
[2019-10-26] MEDS ORDERED: GLUCAGON 1MG KIT 1 MG ML IM PRN (19:30)
[2019-10-26] MEDS ORDERED: DEXTROSE 50%-WATER 50 ML DISP.SYRIN IV PRN (19:30)
[2019-10-26] MEDS: INSULIN HUMULIN R 100 UNIT/ML 3ML SQ SCH (21:00)
[2019-10-26] MEDS ORDERED: HYDRALAZINE HCL 20 MG/ML VIAL IV PRN (21:45)
[2019-10-26] MEDS ORDERED: FAMOTIDINE/PF 20 MG/2 ML VIAL IV ONE (21:45)
[2019-10-27] MEDS ORDERED: DEXTROSE 50%-WATER 50 ML DISP.SYRIN IV ONE (01:44)
--- NOTE | 2019-10-27 03:00 | NUR ---
PT ARRIVED FROM ER. REPORT BY JET MILES.
--- NOTE | 2019-10-27 03:30 | NUR ---
PT IS VERY DROWSY, CONTINUES TO FALL ASLEEP WHILE QUESTIONS ARE BEING ASKED. CAM HAND PAINTER NOTIFIED. PT PUPILS 2MM, SLUGGISH. PT ROOM AIR. NO SOB NOTED. NO COUGHING. ABLE TO STAND UP WITH ASSISTANCE FOR STANDING SCALE. MOST OF THE INFORMATION OBTAINED BY MEDICAL RECORD.
[2019-10-27 04:00] VITALS: BP 159/77
[2019-10-27] MEDS: INSULIN HUMULIN R 100 UNIT/ML 3ML SQ SCH ×4 (06:08→20:19)
[2019-10-27] MEDS ORDERED: HYDR-4153 PO (06:13)
[2019-10-27] MEDS ORDERED: ESCI20TA36 PO (06:13)
[2019-10-27] MEDS ORDERED: LOSA100T58 PO (06:13)
[2019-10-27] MEDS ORDERED: ASPI-556 PO (06:13)
[2019-10-27] MEDS ORDERED: FISH1CAP27 PO (06:13)
[2019-10-27] MEDS ORDERED: ONDA4TAB4 PO (06:13)
[2019-10-27] MEDS ORDERED: PREG100C55 PO (06:13)
[2019-10-27] MEDS ORDERED: GABA600T10 PO (06:13)
[2019-10-27] MEDS ORDERED: FOLI1TAB85 PO (06:13)
[2019-10-27 06:24] LABS: BASOPHILS % (AUTO) 0.8 % (0.0-5.0); EOSINOPHILS % (AUTO) 3.2 % (0.0-8.0); HEMATOCRIT 29.9 % (42-54); LYMPHOCYTES % (AUTO) 8.5 % (21.0-51.0); MEAN CORPUSCULAR HEMOGLOBIN 29.7 pg (27.0-33.0); MEAN CORPUSCULAR HGB CONC 31.8 g/dL (32.0-36.0); MEAN CORPUSCULAR VOLUME 93.4 fL (79-99); MONOCYTES % (AUTO) 7.1 % (3.0-13.0); PLATELET COUNT (AUTO) 178 K/uL (130-400); RED CELL DISTRIBUTION WIDTH 13.8 % (11.0-15.5); WHITE BLOOD COUNT (AUTO) 11.7 K/uL (4.8-10.8)
[2019-10-27 06:44] LABS: ALBUMIN 2.9 g/dL (3.5-5.0); BILIRUBIN,TOTAL 0.4 mg/dL (0.2-1.0); CREATININE 6.4 mg/dL (0.5-1.5); POTASSIUM 4.7 mmol/L (3.5-5.1); TOTAL PROTEIN, SERUM 7.3 g/dL (6.0-8.3)
[2019-10-27 07:06] LABS: B-TYPE NATRIURETIC PEPTIDE 1080 pg/mL (0-100)
[2019-10-27 07:54] VITALS: BP 134/61
[2019-10-27] MEDS: FAMOTIDINE/PF 20 MG/2 ML VIAL IV SCH (09:22)
[2019-10-27 11:41] VITALS: BP 145/81
[2019-10-27] MEDS ORDERED: ONDANSETRON 4 MG TABLET PO PRN (12:15)
--- NOTE | 2019-10-27 12:47 | NUR ---
INITIAL SW spoke with patient's mother, Lara Chapin, [phone]. As per mother, patient lives with his girlfriend but she is presently staying with patient since his girlfriend left to [place]. No home services. Dialysis: TTS at 10:45am [facility]. Mother provides transportation. DME: glucometer (uses insulin), BPM. Patient is able to complete ADL's independently but does not drive as per mother. Mother assists as needed. PCP is Dr. Dionisio Carpio. Pharmacy is [facility] located on [address] [facility]. DCP is home. Addendum: 10/27/19 at 1251 by JACQUIE HAAS SS Amended: Links added.
[2019-10-27] MEDS: HYDRALAZINE HCL 25 MG TABLET PO SCH ×3 (13:00→20:20)
[2019-10-27] MEDS ORDERED: SODIUM CHLORIDE 0.9% 1000ML 1,000 ML IV PRN (14:30)
[2019-10-27] MEDS ORDERED: ACETAMINOPHEN 325 MG TAB PO PRN (14:30)
[2019-10-27] MEDS ORDERED: HEPARIN SODIUM 5000UNIT/ML 1ML VIAL IJ PRN (14:30)
[2019-10-27] MEDS ORDERED: NITROGLYCERIN 0.4 MG SL TAB SL PRN (14:30)
[2019-10-27] MEDS ORDERED: 0.9% SODIUM CHLORIDE 1000 ML IV BAG IV PRN (14:30)
[2019-10-27 14:59] LABS: ALBUMIN 2.8 g/dL (3.5-5.0); CREATININE 5.2 mg/dL (0.5-1.5)
[2019-10-27 15:02] LABS: HEMOGLOBIN A1C 8.3 % (4.0-6.0)
[2019-10-27 15:25] LABS: % IRON SATURATION 39.4 % (30-44)
[2019-10-27 16:42] VITALS: BP 167/81
[2019-10-27] MEDS: ASPIRIN 81 MG EC TAB PO SCH (16:58)
[2019-10-27] MEDS: CITALOPRAM 20 MG TABLET PO SCH (16:58)
[2019-10-27] MEDS: GABAPENTIN 300 MG CAPSULE PO PRN (16:58)
[2019-10-27] MEDS ORDERED: TRAMADOL HCL 50 MG TABLET PO PRN (19:15)
[2019-10-27 19:26] VITALS: BP 173/86
[2019-10-27] MEDS: FISH OIL 1000 MG/CAP PO SCH (20:20)
[2019-10-27] MEDS: PREGABALIN 100 MG CAPSULE PO SCH (20:20)
--- NOTE | 2019-10-27 22:35 | NUR ---
family member called/patient wanting to sign out ama family member called [phone] stated patient called and told her he was being discharged family wanted to confirm informed her that there was not a discharge order as of yet then patient called and informed practical nursing faculty that he wanted ama paperwork when i went in to give patient his night time medications he did not mention anything to me as far as wanting to leave ama informed family member of this the second time she called she stated to just let him rest and that she would talk to him again if he called
[2019-10-28] VITALS (7 sets, daily range): BP systolic 150–182; BP diastolic 76–89
[2019-10-28 04:41] LABS: HEMATOCRIT 28.6 % (42-54); MEAN CORPUSCULAR HEMOGLOBIN 30.1 pg (27.0-33.0); MEAN CORPUSCULAR HGB CONC 32.2 g/dL (32.0-36.0); MEAN CORPUSCULAR VOLUME 93.5 fL (79-99); PLATELET COUNT (AUTO) 194 K/uL (130-400); RED BLOOD CELL COUNT(AUTO) 3.06 MIL/uL (4.50-6.20); RED CELL DISTRIBUTION WIDTH 14.2 % (11.0-15.5); WHITE BLOOD COUNT (AUTO) 11.8 K/uL (4.8-10.8)
[2019-10-28 04:58] LABS: CREATININE 6.1 mg/dL (0.5-1.5); PHOSPHORUS 5.2 mg/dL (2.5-4.9); POTASSIUM 5.3 mmol/L (3.5-5.1)
[2019-10-28] MEDS: INSULIN HUMULIN R 100 UNIT/ML 3ML SQ SCH ×4 (05:57→20:19)
[2019-10-28 07:11] LABS: HEPATITIS A ANTIBODY IGM Negative (Negative); HEPATITIS B CORE IGM Negative (Negative); HEPATITIS Bs ANTIGEN SCREEN P Negative (Negative)
[2019-10-28 07:11] LABS: HEPATITIS Bs ANTIGEN SCREEN P Negative (Negative)
--- NOTE | 2019-10-28 08:30 | NUR ---
AM ASSESSMENT PT LAYING IN BED, WATCHING TV. A/O X 3. NO SOB. NO DISTRESS NOTED. DENIES CHEST PAIN OR DISCOMFORT. DENIES PALPITATIONS. TELE: SR. DENIES N/V AND/OR DIARRHEA. WHITNEY AV GRAFT. (+) THRILL/(+) BRUIT. LT ARM PRECAUTIONS IN PLACE. ESRD, HD TTS. UP AD ALEJANDRINA. INSTRUCTED TO CALL FOR ASSISTANCE. CALL NATY W/IN REACH.
[2019-10-28] MEDS: Vitamin B Complex/Vit C/Folic Acid PO SCH (08:43)
[2019-10-28] MEDS: PREGABALIN 100 MG CAPSULE PO SCH ×2 (08:43→20:18)
[2019-10-28] MEDS: HYDRALAZINE HCL 25 MG TABLET PO SCH ×4 (08:43→20:19)
[2019-10-28] MEDS: FISH OIL 1000 MG/CAP PO SCH ×2 (08:44→20:18)
[2019-10-28] MEDS: FAMOTIDINE/PF 20 MG/2 ML VIAL IV SCH (08:44)
[2019-10-28] MEDS: LOSARTAN 100 MG TABLET PO SCH (08:44)
[2019-10-28] MEDS: ASPIRIN 81 MG EC TAB PO SCH (16:18)
[2019-10-28] MEDS: CITALOPRAM 20 MG TABLET PO SCH (16:18)
[2019-10-28] MEDS: GABAPENTIN 300 MG CAPSULE PO PRN (20:19)
[2019-10-29 03:54] VITALS: BP 160/91
[2019-10-29 04:55] LABS: HEMATOCRIT 28.8 % (42-54); MEAN CORPUSCULAR HEMOGLOBIN 30.2 pg (27.0-33.0); MEAN CORPUSCULAR VOLUME 91.4 fL (79-99); PLATELET COUNT (AUTO) 202 K/uL (130-400); RED BLOOD CELL COUNT(AUTO) 3.15 MIL/uL (4.50-6.20); RED CELL DISTRIBUTION WIDTH 13.7 % (11.0-15.5); WHITE BLOOD COUNT (AUTO) 9.9 K/uL (4.8-10.8)
[2019-10-29 05:27] LABS: POTASSIUM 5.1 mmol/L (3.5-5.1)
[2019-10-29 05:35] LABS: CREATININE 8.4 mg/dL (0.5-1.5)
[2019-10-29] MEDS: INSULIN HUMULIN R 100 UNIT/ML 3ML SQ SCH ×2 (05:57→11:10)
[2019-10-29 07:00] VITALS: BP 173/88
[2019-10-29] MEDS: LOSARTAN 100 MG TABLET PO SCH (08:32)
[2019-10-29] MEDS: Vitamin B Complex/Vit C/Folic Acid PO SCH (08:47)
[2019-10-29] MEDS: FISH OIL 1000 MG/CAP PO SCH (08:47)
[2019-10-29] MEDS: FAMOTIDINE/PF 20 MG/2 ML VIAL IV SCH (08:47)
[2019-10-29] MEDS: PREGABALIN 100 MG CAPSULE PO SCH (08:47)
[2019-10-29] MEDS: HYDRALAZINE HCL 25 MG TABLET PO SCH ×2 (08:47→12:53)
[2019-10-29 11:00] VITALS: BP 177/96
--- NOTE | 2019-10-29 14:20 | NUR ---
DISCHARGE VERBAL & WRITTEN DISCHARGE INSTRUCTIONS REVIEWED & GIVEN TO PT. QUESTIONS ENCOURAGED & CLARIFIED. PROPER CARE & PREVENTION OF FLUID OVERLOAD REVIEWED. PT TO F/U DR SOLO IN 3-5 DAYS. RESUME REGULAR HD SCHEDULE. CONTINUE HOME MEDICATIONS. TELE CHARLES REMOVED. IV DC'D @ THIS TIME. PT TO GATHER PERSONAL BELONGINGS. WILL NOTIFY STAFF WHEN FAMILY ARRIVES TO HOSPITAL TO TAKE PT HOME.
--- NOTE | 2019-10-29 14:21 | NUR ---
HEMODIALYSIS 2.7L REMOVED DURING HD. PT TOLERATED WELL.
--- NOTE | 2019-10-29 15:05 | NUR ---
DISCHARGE FAMILY HERE TO TAKE PT HOME. PT TAKEN TO PRIVATE VEHICLE VIA WC BY Serge CRESPO.
== END 2019-10-29 15:11 | disposition home or self-care (01) | DRG 291 ==
LOC: EDH 15:00 → EDHIP 19:09 → 2DH 10-27 02:32
PROVIDERS: ADMIT Internal Medicine; ATTEND Internal Medicine
PROC: 5A1D70Z Performance of Urinary Filtration, Intermittent, Less than 6 Hours Per Day (ICD-10-PCS; principal; 2019-10-26)
PROC: 5A1D70Z Performance of Urinary Filtration, Intermittent, Less than 6 Hours Per Day (ICD-10-PCS; 2019-10-27)
PROC: 5A1D70Z Performance of Urinary Filtration, Intermittent, Less than 6 Hours Per Day (ICD-10-PCS; 2019-10-29)
DX: I13.2 Hypertensive heart and chronic kidney disease with heart failure and with stage 5 chronic kidney disease, or end stage renal disease (principal); N18.6 End stage renal disease; J96.01 Acute respiratory failure with hypoxia; I50.33 Acute on chronic diastolic (congestive) heart failure; K86.1 Other chronic pancreatitis; E87.5 Hyperkalemia; K52.9 Noninfective gastroenteritis and colitis, unspecified; K21.9 Gastro-esophageal reflux disease without esophagitis; E11.22 Type 2 diabetes mellitus with diabetic chronic kidney disease; D63.1 Anemia in chronic kidney disease; E78.5 Hyperlipidemia, unspecified; G89.29 Other chronic pain; Z20.828 Contact with and (suspected) exposure to other viral communicable diseases; Z90.81 Acquired absence of spleen; Z99.2 Dependence on renal dialysis; Z88.5 Allergy status to narcotic agent; Z88.8 Allergy status to other drugs, medicaments and biological substances; Z91.19 Patient's noncompliance with other medical treatment and regimen; Z90.49 Acquired absence of other specified parts of digestive tract; Z82.49 Family history of ischemic heart disease and other diseases of the circulatory system; Z82.0 Family history of epilepsy and other diseases of the nervous system; Z83.3 Family history of diabetes mellitus
CPT/HCPCS: 36415; 36600; 71045; 80048; 80053; 80061; 80074; 82040; 82140; 82550; 82565; 82728; 82803; 82948; 83036; 83540; 83550; 83880; 84100; 84145; 84484; 84520; 85014; 85018; 85025; 85027; 85378; 85610; 85730; 86701; 86704; 86706; 87340; 87390; 87486; 87520; 87581; 87633; 87635; 87798; 90935; 93005; 93306; 93356; 99291; G0378; J0360; J1940; J3490; J7070